=== PATIENT | female | born 1995 | race Caucasian/White ===

== ENCOUNTER → 2021-10-02 | Outpatient (CLI) | payer OTHER ==
[~2021-10-02] MED LIST: IBUPROFEN800 MG PO; ZITHROMAX250 MG PO
== END ==
LOC: US 10:00
DX: N63.20 Unspecified lump in the left breast, unspecified quadrant (principal); N63.12 Unspecified lump in the right breast, upper inner quadrant
CPT/HCPCS: 76641

== ENCOUNTER 2021-12-22 14:21 | Emergency (ER) | payer BC ==
[2021-12-22 15:35] LABS: HEMOGLOBIN 13.7 gm/dl (12.3-15.3); RED BLOOD COUNT 4.69 M/UL (4.00-5.10); WHITE BLOOD COUNT 13.5 K/UL (4.5-11.0)
[2021-12-22 16:17] LABS: BUN/CREATININE RATIO 14 (0-10)
[2021-12-22] MEDS ORDERED: PREDNISONE 20 M20 MG PO (16:42)
== END 2021-12-22 16:51 | disposition home or self-care (01) ==
LOC: ER1 14:21
PROVIDERS: Student in an Organized Health Care Education/Training Program
DX: J45.901 Unspecified asthma with (acute) exacerbation (principal); J06.9 Acute upper respiratory infection, unspecified; Z20.822 Contact with and (suspected) exposure to COVID-19
CPT/HCPCS: 0240U; 71045; 80048; 85025; 96374; 99285; J1100